=== PATIENT | female | born 1995 | race Caucasian/White ===

== ENCOUNTER 2021-01-05 06:16 | Day surgery (SDC) | payer OTHER ==
[~2021-01-05] VITALS: Ht 157.5 cm; Wt 56.3 kg
[2021-01-05] MEDS ORDERED: CHLORHEXIDINE 15 ML UDC ONE (06:40)
[2021-01-05] MEDS ORDERED: OXYMETAZOLINE NASAL SPRAY 0.05%,30ML ONE (06:49)
[2021-01-05] MEDS ORDERED: BACITRACIN OINT 500U/GM, 15 GM ONE (06:49)
[2021-01-05] MEDS ORDERED: LIDOCAINE/PF 1%-EPI 1:200K, 30 ML ONE (06:49)
[2021-01-05] MEDS ORDERED: PLEASE ENTER ALLERGIES MC SCH (07:00)
[2021-01-05] MEDS ORDERED: CHLORHEXIDINE 15 ML UDC PO ONE (07:00)
[2021-01-05] MEDS ORDERED: LACTATED RINGERS 1,000 ML IV SCH (07:00)
[2021-01-05 07:10] VITALS: BP 114/74
[2021-01-05 07:12] VITALS: BP 114/74
[2021-01-05] MEDS ORDERED: MIDAZOLAM 1 MG/ML, 2ML ONE (07:15)
[2021-01-05] MEDS ORDERED: PROPOFOL 10 MG/ML, 20ML ONE (07:16)
[2021-01-05] MEDS ORDERED: FENTANYL PF 100 MCG/2ML ONE ×2 (07:16→09:13)
[2021-01-05 07:30] LABS: HCG UR SG 1.018 (1.003-1.030)
[2021-01-05] MEDS ORDERED: DIAZEPAM 5 MG/ML, 2ML IVPush PRN (07:30)
[2021-01-05] MEDS ORDERED: ONDANSETRON 2MG/ML, 2ML IVPush PRN (07:30)
[2021-01-05] MEDS ORDERED: PROMETHAZINE 25 MG/ML, 1ML IVPush PRN (07:30)
[2021-01-05] MEDS ORDERED: FENTANYL PF 100 MCG/2ML IV PRN (07:30)
[2021-01-05] MEDS ORDERED: LABETALOL 5MG/ML, 20ML IV PRN (07:30)
[2021-01-05] MEDS ORDERED: hydrALAzine 20 MG/ML, 1ML IV PRN (07:30)
[2021-01-05] MEDS ORDERED: HYDROmorphone 1 MG/ML, 1ML INJ IVPush PRN (07:30)
[2021-01-05] MEDS ORDERED: MEPERIDINE/PF 25MG/0.5ML IVPush PRN (07:30)
[2021-01-05] MEDS ORDERED: DEXAMETHASONE 4 MG/ML, 1ML ONE ×2 (08:21)
[2021-01-05] MEDS ORDERED: LIDOCAINE-MPF 2% ,5ML ONE (08:21)
[2021-01-05] MEDS ORDERED: ONDANSETRON 2MG/ML, 2ML ONE (08:21)
[2021-01-05] MEDS ORDERED: SUCCINYLCHOLINE 20 MG/ML, 10ML ONE (08:22)
[2021-01-05] MEDS ORDERED: PROMETHAZINE 25 MG/ML, 1ML ONE (09:01)
[2021-01-05] MEDS ORDERED: OXYcodone 5 MG/5 ML ORAL.SOL UDC ONE (09:14)
[2021-01-05] MEDS: OXYcodone 5 MG/5 ML ORAL.SOL UDC PO PRN ×2 (09:16→10:14)
[2021-01-05] MEDS ORDERED: ACETAMINOPHEN 325 MG TABLET PO PRN (10:00)
== END 2021-01-05 11:10 | disposition home or self-care (01) ==
LOC: OUT 06:16
PROVIDERS: ATTEND Otolaryngology
DX: J34.2 Deviated nasal septum (principal); J34.3 Hypertrophy of nasal turbinates; Z88.2 Allergy status to sulfonamides
CPT/HCPCS: 30140; 30520; 81025; J0330; J1100; J2250; J2405; J2550; J2704; J3010; J7120